=== PATIENT | male | born 1960 | race Caucasian/White ===

== ENCOUNTER 2020-07-07 00:05 | Outpatient (CLI) | payer OTHER, SELFPAY ==
[2020-07-07 19:24] LABS: SARS-CoV-2 RNA PCR Negative
== END 2020-07-07 00:06 | disposition home or self-care (01) ==
LOC: ANHCOVIDDT 00:06
PROVIDERS: PCP Family Medicine; Visit Provider Orthopaedic Surgery
DX: Z01.812 Encounter for preprocedural laboratory examination (principal); Z20.828 Contact with and (suspected) exposure to other viral communicable diseases
CPT/HCPCS: 87635; C9803; U0003

== ENCOUNTER 2020-07-10 01:32 | Day surgery (SDC) | payer OTHER, SELFPAY ==
[2020-07-04 14:27] VITALS: BMI 22.0
[2020-07-10] VITALS (7 sets, daily range): BP systolic 111–147; BP diastolic 68–77; PULSE 51–65; RESP 12–16; TEMP 36.1–37.1; O2SAT 96–100
--- NOTE | ~2020-07-10 | XR_ITS ---
EXAMINATION: XR surgery orthopedic DATE: 07/10/2020 14:53 INDICATION: ORIF distal right clavicle. TECHNIQUE: A single frontal fluoroscopic spot image of the right shoulder was obtained during procedu re performed by Dr. Austin. Radiologist was not present for the imaging or procedure. The amount of flu oroscopy time used during this procedure was 0.3 minutes. COMPARISON: 07/04/2020 FINDINGS: Interval open reduction and plate and screw internal fixation of the comminuted distal right clavicle fracture. Alignment appears near-anatomic. There appear to be a few residual bone fragments projecti ng between the site of the fracture and the coracoid process. Expected small amount of gas in the sof t tissues. No other fractures identified. Cystic changes along the greater tuberosity which could be seen with chronic rotator cuff disease. IMPRESSION: 1. Near-anatomic alignment post internal fixation of a comminuted distal right clavicle fracture. See procedure note for further detail. Reviewed, dictated and finalized at [facility]. SECRETARY
[2020-07-10] MEDS: LACTATED RINGERS 1,000 ML 30 ML IV CONT ×2 (12:12→15:13)
[2020-07-10] MEDS: ACETAMINOPHEN 500 MG TABLET 1000 MG PO (12:13)
[2020-07-10] MEDS: KETOROLAC 15 MG/ML VIAL (*BKC) IV PUSH (12:20)
--- NOTE | 2020-07-10 12:27 | P.PNAN_ITS ---
Anes - Initial Pre Proc Eval Procedure: Operation Date: 07/10/20 13:30 Proposed Procedures p Open Reduction Internal Fixation Right Distal Clavicle - Anjum Austin MD Date/Time: 07/10/20 12:27 Surgeon: Anjum Austin MD Pre Op Diagnosis: Right Distal Clavicle Fracture Patient Data Age: 60 Gender: M Height: 1.91 m Weight: 77.9 kg Last Vital Signs Temp 37.1 C 07/10/20 11:52 Pulse 65 07/10/20 11:52 Resp 16 07/10/20 11:52 BP 147/76 H 07/10/20 11:52 Pulse Ox 100 07/10/20 11:52 Allergies Allergy/AdvReac Type Severity Reaction Status Date / Time No Known Allergies Allergy Unknown Verified 07/10/20 11:39 Home Medications Medication Instructions Recorded Confirmed Type cetirizine 10 mg tablet 10 mg PO DAILY 07/04/20 07/10/20 History cholecalciferol (vitamin D3) 50 mcg PO DAILY 07/04/20 07/10/20 History [Vitamin D3] escitalopram oxalate 10 mg tablet 10 mg PO QAM 07/04/20 07/10/20 History finasteride 5 mg tablet 5 mg PO HS 07/04/20 07/10/20 History fluticasone furoate 50 2 inh INHALATION QAM 07/04/20 07/10/20 History mcg/actuation blister powder for inhalation glucos sul [id number]-Mn 1 cap PO BID 07/04/20 07/10/20 History [Glucosamine Chondroitin] magnesium-potassium 1 cap PO BID 07/04/20 07/10/20 History multivitamin 1 tablet PO DAILY 07/04/20 07/10/20 History omega-3 fatty acids 1,000 mg 1,000 mg PO TID 07/04/20 07/04/20 History capsule vit C,G-Ft-vxjrh-lutein-zeaxan 1 tablet PO BID 07/04/20 07/10/20 History [PreserVision AREDS-2] wheat dextrin [Benefiber (wheat 1 g PO BID 07/04/20 07/10/20 History dextrin)] Patient hx anesthesia problems: none Family hx anesthesia problems: none PMFSH Past Medical History Medical History (Updated 07/04/20 @ 09:16 by Anjum Austin MD) Kidney stones Surgical History Surgical History (Updated 07/04/20 @ 08:38 by Sherrell Choudhary) History of carpal tunnel surgery of right wrist 2002 Family History Family History (Updated 07/04/20 @ 08:39 by Sherrell Choudhary) Mother Heart disease Father Heart disease Social History Social History (Updated 07/04/20 @ 08:42 by Sherrell Choudhary) Smoking status: Never smoker Alcohol intake: never Substance use: never Living arrangements: with family 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 Gender identity (if verbalized by the patient): Male Spiritual care concerns: No Anes - Eval Final PreProcedure Day of Procedure 07/10/20 12:27 Patient weight: normal Heart: regular rate and rhythm Lungs: clear to auscultation and normal air movement Airway: Mallampati scale class II Neurological: alert and oriented Last oral intake: >/= 8 hours ASA classification: I Emergent: no Anesthetic plan: proceed Anesthesia type and monitoring: general ETT and standard monitoring Informed Consent: The patient's anesthetic plan and its attendant risks and benefits were discussed with the patient/family/POA. Questions were solicited and answers provided to the satisfaction of the patient/family/POA.
--- NOTE | 2020-07-10 12:39 | WPDHPUPDATE1 ---
History and Physical Update Update Date/Time: 07/10/20 12:39 History and Physical has been reviewed, including an updated exam of the patient. There are NO changes in the patient's condition. Risks, benefits, and alternatives have been discussed and questions answered. Patient agrees to proceed with procedure.
--- NOTE | 2020-07-10 12:46 | WPDANESPNB ---
Anes - Peripheral Nerve Block Date/Time: 07/10/20 12:46 I have discussed with the patient/family/POA the placement of a peripheral nerve block for post-operative pain management, including associated risks, benefits, complications, and side effects. Alternative methods of post-operative analgesia were detailed. Questions were solicited and answers provided to the satisfaction of the patient/family/POA. Time-Out: A pre-procedural Time-Out was completed immediately before starting the procedure and confirmed: Patient Identification, Site, Procedure, Patient Position and the Availability of Requisite Equipment. Clinical Indications: Acute post-operative pain management requested by the operative surgeon. Nerve Block Insertion Note Anes-nerve block: interscalene right Patient position: supine Skin prep: chlorhexidine Needle: 22 gauge, stimulating, insulated echogenic needle. Needle length: 50 mm Technique: ultrasound Injectate: bupivacaine 0.5% with epi 5 mcg/ml (30cc) Observations: tolerated well Complications: none Procedure start time:: 1241 Procedure end time:: 1244
[2020-07-10] MEDS: ceFAZolin 2 GM/D5W 50 ML 2 GM/50 ML BAG IVPB (12:50)
[2020-07-10] MEDS: ceFAZolin SODIUM 1 GM VIAL IV PUSH (14:41)
--- NOTE | 2020-07-10 15:10 | PM.PROC ---
Procedure Note - Detailed Date of procedure: 07/10/20 Pre-op diagnosis: Right Distal Clavicle Fracture Post-op diagnosis: same Procedure performed: ORIF right distal clavicle fracture with fluoroscopic assistance Description of procedure: The patient was identified in the proper site identified. In the preop holding area the anesthesia team performed a right upper extremity block. He was then taken to the operating room and transferred to the OR table. After general anesthetic induction intubation he was position in a semi beach chair position on the fracture table taking care to properly pad position his torso and extremities. His head and neck were secured taking care to near the rotator extend the head and neck. Right upper extremity was prepped and draped free in usual sterile fashion. Several cc of 0.25% Marcaine and epinephrine solution was injected in the subcutaneous tissue over the distal clavicle in the anterior portion of the acromion. Longitudinal incision was made along the distal clavicle. Subcutaneous tissue was sharply dissected down to the distal clavicle and acromion. The fracture site was identified and cleared of debris. The trapezius was elevated off of the clavicle posteriorly in the deltoid anteriorly. There was a spike of the main shaft fragment which was incarcerated in the trapezius muscle and this was able to be disimpacted. The distal portion of the clavicle of the AC joint will had a bone that was still attached to the coracoclavicular ligaments in. In addition the piece was highly comminuted. After the fracture site was cleared of debris and using fluoroscopic assistance a reduction was able to be affected in the secured using a five hole distal clavicle hook plate from the [employer] set . Care was taken to stay lateral to the coracoid process and also to avoid the suprascapular nerve near the spinoglenoid notch. Because of the comminution of the distal fragment purchase was not able to be accomplished with screws so this was secured with Ortho tape. Overall this gave a nice reduction when viewed fluoroscopically. Wound was irrigated with sterile saline. The interval between the trapezius and deltoid was reapproximated with 2. Vicryl suture. Subcu reapproximated with three 0 Monocryl and then to a strata fix and tissue adhesive were used for the skin. A sterile dressing was applied. He tolerated the procedure well. He was awakened, extubated and transferred back to [facility] and taken recovery in stable condition. There were no known intraoperative complications. Estimated blood loss was 100 cc. He received perioperative antibiotics. Anesthesia: GETA Surgeon: Anjum Austin MD Product Development Specialist: Toni Estimated blood loss (mL): 100 Packing: No Complications: No immediate complications Disposition: PACU
== END 2020-07-10 17:10 | disposition home or self-care (01) ==
PROVIDERS: PCP Family Medicine; Visit Provider Orthopaedic Surgery
PROC: (CPT 23515; principal; 2020-07-10 13:30)
DX: S42.031A Displaced fracture of lateral end of right clavicle, initial encounter for closed fracture (principal); G89.18 Other acute postprocedural pain; W19.XXXA Unspecified fall, initial encounter
CPT/HCPCS: 23515; 64415; 87635; A4565; A9270; C1713; C9803; J0690; J1885; J2250; J3010; J7120; U0003

== ENCOUNTER → 2021-01-05 07:38 | Outpatient (CLI) | payer OTHER, SELFPAY ==
[2021-01-05 19:23] LABS: SARS-CoV-2 RNA PCR Negative
== END ==
PROVIDERS: PCP Family Medicine; Visit Provider Orthopaedic Surgery
DX: Z01.812 Encounter for preprocedural laboratory examination (principal); Z20.822 Contact with and (suspected) exposure to COVID-19
CPT/HCPCS: C9803; U0003; U0005

== ENCOUNTER 2021-01-08 00:55 | Day surgery (SDC) | payer OTHER, SELFPAY ==
[2021-01-01 13:23] VITALS: BMI 22.6
--- NOTE | ~2021-01-08 | XR_ITS ---
EXAMINATION: XR clavicle RT DATE: 01/08/2021 13:31 INDICATION: Right clavicle hardware removal. TECHNIQUE: A single view of right clavicle was obtained. COMPARISON: Right shoulder radiographs 11/01/2020 FINDINGS: Bone alignment is normal. No acute fracture. There are old screw tracks in distal clavicle. There is mild osteoarthritis of acromioclavicular joint and glenohumeral joint. IMPRESSION: 1. Mild polyarticular osteoarthritis. Reviewed, dictated and finalized at location B.
[2021-01-08 10:55] VITALS: BP 147/79; PULSE 55; RESP 16; TEMP 36.3; O2SAT 100
[2021-01-08] MEDS: ACETAMINOPHEN 500 MG TABLET 1000 MG PO (11:09)
[2021-01-08] MEDS: LACTATED RINGERS 1,000 ML 30 ML IV CONT ×2 (11:24→13:22)
[2021-01-08] MEDS: KETOROLAC 15 MG/ML VIAL (*BKC) IV PUSH (11:25)
--- NOTE | 2021-01-08 11:28 | P.PNAN_ITS ---
Anes - Initial Pre Proc Eval Procedure: Operation Date: 01/08/21 12:30 Proposed Procedures p Removal Hardware Right Clavicle - Anjum Austin MD Date/Time: 01/08/21 11:28 Surgeon: Anjum Austin MD Pre Op Diagnosis: s/p ORIF right clavicle Patient Data Age: 60 Gender: M Height: 1.88 m Weight: 80 kg Last Vital Signs Temp 36.3 C L 01/08/21 10:55 Pulse 55 L 01/08/21 10:55 Resp 16 01/08/21 10:55 BP 147/79 H 01/08/21 10:55 Pulse Ox 100 01/08/21 10:55 Allergies Allergy/AdvReac Type Severity Reaction Status Date / Time No Known Allergies Allergy Unknown Verified 01/08/21 11:03 Home Medications Medication Instructions Recorded Confirmed Type Glucosamine Chondroitin 1 cap PO BID 07/04/20 01/08/21 History PreserVision AREDS-2 1 tablet PO DAILY 07/04/20 01/08/21 History cetirizine 10 mg tablet 10 mg PO DAILY 07/04/20 01/08/21 History cholecalciferol (vitamin D3) 50 mcg PO DAILY 07/04/20 01/08/21 History [Vitamin D3] escitalopram oxalate 10 mg tablet 10 mg PO QAM 07/04/20 01/08/21 History finasteride 5 mg tablet 5 mg PO HS 07/04/20 01/08/21 History fluticasone furoate 50 2 inh INHALATION QAM 07/04/20 01/08/21 History mcg/actuation blister powder for inhalation magnesium-potassium 1 cap PO BID 07/04/20 01/08/21 History multivitamin 1 tablet PO DAILY 07/04/20 01/08/21 History omega-3 fatty acids 1,000 mg 1,000 mg PO TID 07/04/20 01/08/21 History capsule wheat dextrin 1 g PO BID 07/04/20 01/08/21 History melatonin 3 mg PO HS 01/01/21 01/08/21 History Patient hx anesthesia problems: none Family hx anesthesia problems: none PMFSH Past Medical History Medical History (Updated 01/08/21 @ 08:14 by Chester Hardy DO) Anxiety BMI 21.0-21.9, adult Depression Kidney stones Surgical History Surgical History (Updated 01/08/21 @ 08:14 by Chester Hardy DO) History of carpal tunnel surgery of right wrist 2001 History of lithotripsy Right clavicle fracture ORIF June 2020 Family History Family History Mother Heart disease Father Heart disease Social History Social History Smoking status: Never smoker Alcohol intake: never Substance use: never Living arrangements: with family Additional living arrangements comments: 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 Gender identity (if verbalized by the patient): Male Spiritual care concerns: No Anes - Eval Final PreProcedure Day of Procedure 01/08/21 11:28 Patient weight: normal Heart: regular rate and rhythm Lungs: clear to auscultation and normal air movement Airway: Mallampati scale class 1 Neurological: alert and oriented Last oral intake: >/= 8 hours ASA classification: II Emergent: no Anesthetic plan: proceed Anesthesia type and monitoring: general ETT and standard monitoring Informed Consent: The patient's anesthetic plan and its attendant risks and benefits were discussed with the patient/family/POA. Questions were solicited and answers provided to the satisfaction of the patient/family/POA.
--- NOTE | 2021-01-08 11:41 | WPDHPUPDATE1 ---
History and Physical Update Update Date/Time: 01/08/21 11:41 History and Physical has been reviewed, including an updated exam of the patient. There are NO changes in the patient's condition. Risks, benefits, and alternatives have been discussed and questions answered. Patient agrees to proceed with procedure.
[2021-01-08] MEDS: ceFAZolin 2 GM/D5W 50 ML 2 GM/50 ML BAG IVPB (12:10)
--- NOTE | 2021-01-08 12:18 | WPDANESPNB ---
Anes - Peripheral Nerve Block Date/Time: 01/08/21 12:18 I have discussed with the patient/family/POA the placement of a peripheral nerve block for post-operative pain management, including associated risks, benefits, complications, and side effects. Alternative methods of post-operative analgesia were detailed. Questions were solicited and answers provided to the satisfaction of the patient/family/POA. Time-Out: A pre-procedural Time-Out was completed immediately before starting the procedure and confirmed: Patient Identification, Site, Procedure, Patient Position and the Availability of Requisite Equipment. Clinical Indications: Acute post-operative pain management requested by the operative surgeon. Nerve Block Insertion Note Anes-nerve block: interscalene right Patient position: supine Skin prep: chlorhexidine Needle: 22 gauge, stimulating, insulated echogenic needle. Needle length: 50 mm Technique: ultrasound Injectate: bupivacaine 0.5% with epi 5 mcg/ml (30cc- no epi) Observations: tolerated well Complications: none Procedure start time:: 1201 Procedure end time:: 1204
--- NOTE | 2021-01-08 13:21 | PM.PROC ---
Procedure Note - Detailed Date of procedure: 01/08/21 Pre-op diagnosis: s/p ORIF right clavicle Post-op diagnosis: same Procedure performed: Hardware removal right distal clavicle Description of procedure: Patient was identified and proper site identified. In the preop holding area the anesthesia team performed a right upper extremity block. He was then taken to the operating room and transferred to the or table taking care to pad the torso and extremities. After general anesthetic induction and intubation, he was put in a semi beach chair position in the usual manner for a right shoulder procedure. His head was secured taking care to neither rotate nor extend the head and neck. The[] upper extremity was prepped and draped free in usual sterile fashion. The central portion of the patient's scar was used for the incision. An incision was made over the clavicular plate. Subcutaneous tissue sharply dissected directly down to the plate. Scar tissue was freed up from the plate. The three screws removed and then after the plate was freed up from the clavicle is able to be removed without incident. Wound irrigated with sterile saline. Deeper layers of subcutaneous tissue reapproximated with three 0 Monocryl. Skin reapproximated with two strata fix and tissue adhesive. Sterile dressing was applied. He tolerated the procedure well. He was awakened, extubated, transferred to a cart and taken to recovery area in stable condition. There were no known intraoperative complications. Estimated blood loss was 20 mL. There were no known intraoperative complications, and perioperative antibiotics were administered. Anesthesia: GETA and regional Surgeon: Anjum Austin MD Door Frame Assembler Machine: Padmini Curtis Estimated blood loss (mL): 20 Drains: No Packing: No Pathology: none sent Complications: No immediate complications Condition: stable Disposition: PACU
[2021-01-08 13:22] VITALS: BP 138/74; PULSE 65; RESP 13; TEMP 36.2; O2SAT 98
[2021-01-08 13:35] VITALS: BP 140/74; PULSE 66; RESP 17; O2SAT 97
[2021-01-08 13:46] VITALS: BP 141/75; PULSE 64; RESP 17; O2SAT 97
[2021-01-08 13:48] VITALS: BP 150/80; PULSE 61; RESP 16
[2021-01-08 14:15] VITALS: BP 143/36; PULSE 55; RESP 16
== END 2021-01-08 14:40 | disposition home or self-care (01) ==
PROVIDERS: PCP Family Medicine; Visit Provider Orthopaedic Surgery
PROC: (CPT 20694; principal; 2021-01-08 12:30)
DX: Z47.2 Encounter for removal of internal fixation device (principal); S42.031D Displaced fracture of lateral end of right clavicle, subsequent encounter for fracture with routine healing; G89.18 Other acute postprocedural pain; F41.8 Other specified anxiety disorders
CPT/HCPCS: 20680; 64415; 73000; A4565; A9270; C9803; J0330; J0690; J1100; J1885; J2250; J2405; J2704; J3010; J7120; U0003; U0005

== ENCOUNTER 2024-08-31 08:48 | Outpatient (CLI) | payer OTHER, SELFPAY ==
--- NOTE | ~2024-08-31 | CT_ITS ---
EXAMINATION: CT abdomen pelvis w con DATE: 08/31/2024 09:21 INDICATION: Chronic prostatitis TECHNIQUE: Computed tomography (CT) of the abdomen and pelvis was performed with 100 mL Omnipaque-350 intravenous contrast. Automated exposure control and iterative reconstruction technique were employe d. The dose-length product was 470.32 mGy-cm. COMPARISON: None FINDINGS: Mild dependent atelectasis in the bilateral lower lobes. Heart size is normal. No pericardial or pleu ral effusion. Liver, gallbladder, spleen, pancreas and bilateral adrenal glands are normal. Bilateral nonobstructing nephrolithiasis with one 2 mm stone in the right kidney and 4 stones in the left kidn ey measuring up to 6 mm. Kidneys are otherwise normal with symmetric enhancement and no hydronephrosi s. There are coarse calcifications in the mildly enlarged prostate which measures 4.6 x 3.1 x 3.6 cm. Bladder is normal. There are few phleboliths in the deep pelvis. There few sigmoid diverticula witho ut adjacent from trace stranding to suggest diverticulitis. Small bowel and appendix are normal. Mini mal amount of nonspecific ascites in the pelvis. No abscess or free intraperitoneal gas. No pathologi lukasz enlarged abdominal or pelvic lymphadenopathy. Cervical disc height loss at L5-S1. Otherwise mil d to moderate lumbar and lower thoracic spondylosis. IMPRESSION: 1. Mild prostatomegaly. 2. Small amount of nonspecific ascites in the deep pelvis. 3. Bilateral nonobstructing nephrolithiasis. Reviewed, dictated and finalized at location B. GE PICKER
[2024-08-31 09:14] LABS: Estimated Glomerular Filt Rate > 60
== END 2024-08-31 08:49 | disposition home or self-care (01) ==
PROVIDERS: PCP Family Medicine; Visit Provider Nurse Practitioner
DX: N41.1 Chronic prostatitis (principal); N40.0 Benign prostatic hyperplasia without lower urinary tract symptoms; R18.8 Other ascites; N20.0 Calculus of kidney
CPT/HCPCS: 74177; Q9967